=== PATIENT | male | born 1950 | race Caucasian/White ===

== ENCOUNTER → 2025-01-11 12:11 | Outpatient (CLI) | payer MEDICARE, OTHER, SELFPAY ==
--- NOTE | 2025-01-11 12:18 | DI.US.S_ITS ---
PROCEDURE: US FINE NEEDLE ASPIRATION INDICATIONS: BILATERAL THYROID NODULES TECHNIQUE: The indications, alternatives, benefits, risks, and complications of the procedure were explained to the patient. Written informed consent was obtained and placed in the chart. The thyroid region was examined sonographically and a site was chosen for ultrasound guided percutaneous sampling. The skin was prepared and draped in the usual fashion, and anesthetized with 1% lidocaine infiltrated from the skin down to the thyroid gland. Multiple passes were then performed, with contents emptied into an appropriate pathology specimen container. A bandage was applied to the area of access at completion of the study. COMPARISON: None. FINDINGS: Locations of lesions sampled: Right thyroid lobe, inferior. Left thyroid lobe, inferior [place]: 25 gauge and 22 gauge needles. Number of passes: Right 9, left 6. Medications: 1% lidocaine for local anaesthesia. Complications: None. IMPRESSION: Successful ultrasound-guided thyroid bilateral nodules fine needle aspiration, with cytology results pending. Please see chart below for management recommendations based on cytology results. [facility] ReportingRecommendationsNon-diagnostic* Repeat US-guided FNA, with on-site cytology evaluation if possible. * Repeated non-diagnostic nodules without high suspicion US features: close observation vs surgical consult. * Consider surgery if nodule has high suspicion US features, grows >20% in 2 dimensions on followup, or patient has clinical risk factors for malignancy. Benign* If nodule has high suspicion US features: repeat US and FNA within 12 months. * If nodule has low to intermediate suspicion US features: repeat US at 12-24 months. If nodule grows (20% increase in at least 2 dimensions, with minimal increase of 2 mm or >50% change in volume), or development of new suspicious US features, then repeat FNA or continue followup. * If nodule has very low suspicion US features: followup US at >24 months. Atypia of undetermined significance, follicular lesion of undetermined significanceRepeat FNA, molecular testing, followup US, or surgical consult.Follicular neoplasm, suspicious for follicular neoplasmSurgical consult; also consider molecular testing. Suspicious for malignancySurgical consult.MalignantSurgical consult. Dictated by: Anshu Mata M.D. on 01/13/2025 at 10:03 Approved by: Anshu Mata M.D. on 01/13/2025 at 10:07
--- NOTE | 2025-01-11 13:31 | PATH_ITS ---
Note [facility] Accession Number: [id number] TESTS RESULT FLAG UNITS REF RANGE LAB Clinician Provided Cytology Information No. of containers..01 Other (Miscellaneous) No. of containers..02 Previously Prepared Cytology Slide Source: LEFT THYROID MASS (A) DIAGNOSIS: LEFT THYROID MASS (A) BENIGN. B[place]ES[place] CATEGORY II. SPECIMEN CONSISTS OF FEW BENIGN FOLLICULAR CELLS, RARE HEMOSIDERIN-LADEN MACROPHAGES, COLLOID, AND BLOOD. THIS PATTERN IS CONSISTENT WITH FOLLICULAR NODULAR DISEASE. Pathologist ICD10: E04.1, E04.2 Signed out by: Tori Mccormick MD, Pathologist NPI- [id number] Performed by: Nadir Bell, [employer] ([facility]) Gross description: 30 CC, YELLOW, CLEAR RECIEVED: IN CYTOLYT WITH 6 ALCOHOL FIXED AND 6 QUICK STAINED SLIDES ALSO 1 RNA VIAL WILL ON 06-26-2025.VO /VDU 01/12/2025 0633 Local FLAG LEGEND: L-Low Normal,H-High Normal,LL-Alert Low,HH-Alert High <-Panic Low,>-Panic High,A-Abnormal,AA-Critical Abnormal Performed at: 01 =Z [facility], [place] [address] Raj Valencia MD, Performed at: [address], [place], [place] [id number] MD Raj Valencia MD Phone: [phone]
--- NOTE | 2025-01-11 13:32 | PATH_ITS ---
Note [facility] Accession Number: [id number] TESTS RESULT FLAG UNITS REF RANGE LAB Clinician Provided Cytology Information No. of containers..01 Other (Miscellaneous) No. of containers..06 Previously Prepared Cytology Slide Source: RIGHT THYROID NODULE (B) DIAGNOSIS: RIGHT THYROID NODULE (B) INCONCLUSIVE. B[place]ES[place] CATEGORY III. ATYPIA OF UNDETERMINED SIGNIFIANCE - NUCLEAR ATYPIA. MOLECULAR STUDIES REQUESTED; RESULTS WILL BE REPORTED SEPARATELY. Pathologist ICD10: R89.6 Signed out by: Tori Mccormick MD, Pathologist NPI- [id number] Performed by: Nadir Bell, Product Info Specialist ([facility] [place]) Gross description: 30 CC, PINK, CLEAR RECIEVED: IN CYTOLYT WITH 8 ALCOHOL FIXED AND 8 QUICK STAINED SLIDES ALSO 1 RNA VIAL WILL ON 06-26-2025.VO /VDU 01/12/2025 0634 Local FLAG LEGEND: L-Low Normal,H-High Normal,LL-Alert Low,HH-Alert High <-Panic Low,>-Panic High,A-Abnormal,AA-Critical Abnormal Performed at: 01 =Z [facility] [facility], [place] [address] Raj Valencia MD, Performed at: [address], [place], [place] [id number] MD Raj Valencia MD Phone: [phone]
== END ==
PROVIDERS: PCP Student in an Organized Health Care Education/Training Program; Referring Provider Student in an Organized Health Care Education/Training Program; Visit Provider Student in an Organized Health Care Education/Training Program
DX: E04.2 Nontoxic multinodular goiter (principal)
CPT/HCPCS: 10005

== ENCOUNTER → 2025-02-11 07:33 | Outpatient (CLI) | payer MEDICARE, OTHER, SELFPAY ==
--- NOTE | 2025-02-11 | DI.NM.S_ITS ---
PROCEDURE: NM EXERCISE TREADMILL NON NUC COMPARISON: None. INDICATIONS: BENAVIDEZ FINDINGS: the patient exercised for 9 minutes and 42 seconds reaching 92% of maximum predicted heart rate. Appropriate BP response to exercise. Very good exercise capacity (10.1 METS, FARHEEN -41%). Resting ECG showed sinus rhythm with RBBB, which makes V1-V3 leads difficult to interpret with exercise. No diagnostic ST changes during exercise or recovery. No angina during the study. Frequent PVCs during exercise. IMPRESSION: Low risk, normal treadmill ECG only stress test from inducible ischemia standpoint. Very good exercise capacity (10.1 METS, FARHEEN -41%). Frequent PVCs during exercise. No angina during the study. Dictated by: Donovan Cline MD on 02/11/2025 at 14:14 Approved by: Donovan Cline MD on 02/11/2025 at 14:18
== END ==
LOC: NUCM 07:34
PROVIDERS: PCP Student in an Organized Health Care Education/Training Program; Referring Provider Student in an Organized Health Care Education/Training Program; Visit Provider Student in an Organized Health Care Education/Training Program
DX: R06.09 Other forms of dyspnea (principal)
CPT/HCPCS: 93016; 93017; 93018